=== PATIENT | female | born 2000 | race Caucasian/White ===

== ENCOUNTER 2022-01-02 01:52 | Emergency (ER) | payer SELFPAY ==
[~2022-01-02] VITALS: Ht 152 cm; Wt 58.0 kg
[~2022-01-02 01:52] MED LIST: AGM875T PO; GENT3.5O18 OS
[2022-01-02 02:00] VITALS: BP 140/97
--- NOTE | 2022-01-02 02:34 | ED Integumentary General ---
General Chief Complaint: Laceration Stated Complaint: L HAND INDEX FINGER LAC;BLEEDING Nursing Triage Note: PT REPORTS TO ED FOR LT HAND INDEX FINGER LAC. SHE WAS CUTTING OPEN A BAG OF PIZZA ROLLS WITH A KNIFE WHEN IT SLIPPED. NO BLEEDING AT THIS TIME. PT AMB. TO ROOM 04 WITHOUT DIFFICULTY. Source: patient Exam Limitations: no limitations History of Present Illness Date Seen by Provider: Jan 02, 2022 Time Seen by Provider: 02:25 Initial Comments Patient is a 21-year-old female who presents to the emergency room with a chief complaint of laceration to the index finger of her left hand. Patient was opening a bag of pizza rolls when the knife slipped and she sliced her index finger. Complains of pain and bleeding. No other complaints of recent illness or injury. All other review of systems reviewed and negative except as stated. Timing/Duration: just prior to arrival Severity: mild Location: hands (Left index finger) Possible Cause: other Associated Symptoms: denies symptoms Allergies and Home Medications Patient Home Medication List Home Medication List Reviewed: Yes Review of Systems Review of Systems Constitutional: see HPI Respiratory: no symptoms reported Cardiovascular: no symptoms reported Musculoskeletal: no symptoms reported Skin: other (Laceration left index finger) Past Vrlcpti-Bptham-Alheww Hx Patient Social History Tobacco Use?: No Substance use?: No Alcohol Use?: No Pt feels they are or have been: No Past Medical History Surgery/Hospitalization HX: PMH;DENIES. SURGERY;DENIES. Physical Exam Vital Signs Vital Signs - First Documented 01/02/22 02:00 Temp 36.2 Pulse 90 Resp 20 B/P (MAP) 140/97 (111) Pulse Ox 97 O2 Delivery Room Air Capillary Refill : Less Than 3 Seconds General Appearance: WD/WN, no apparent distress Cardiovascular: regular rate, rhythm Respiratory: no respiratory distress, no accessory muscle use Extremities: normal range of motion, normal inspection Neurologic/Psychiatric: alert, normal mood/affect, oriented x 3 Skin: normal color, warm/dry Skin Problem Location: other (Superficial laceration approximately 1.2 cm across the tip of the distal left index finger. No active bleeding. Minimal visualization of subcutaneous fat.) Procedures/Interventions Wound Location: Upper Extremities Other Wound Location Tip of left index finger Wound Length (cm): 1.2 Wound's Depth, Shape: superficial Wound Explored: clean Irrigated w/ Saline (ccs): 20 Other Closure Supply: Wound Adhesive Progress Wound cleansed with saline. Skin affix used to approximate wound edges. Dressing applied Progress/Results/Core Measures Results/Orders Vital Signs/I&O 01/02/22 02:00 Temp 36.2 Pulse 90 Resp 20 B/P (MAP) 140/97 (111) Pulse Ox 97 O2 Delivery Room Air Blood Pressure Mean: 111 Departure Impression Primary Impression: Laceration of left index finger Qualified Codes: S61.211A - Laceration without foreign body of left index finger without damage to nail, initial encounter Disposition: HOME, SELF-CARE Condition: Stable Departure-Patient Inst. Decision time for Depature: 02:33 Referrals: NO,LOCAL PHYSICIAN (PCP) Primary Care Physician Patient Instructions: Laceration Repair With Glue ED Add. Discharge Instructions: Do not put any triple antibiotic ointment over the glue as it will take it off. You can wash the finger normally with soap and water. The glue will peel off over time. Keep a dressing on the finger for the next couple of days. Return to the emergency room for any signs or symptoms of infection, fever or other emergent concerns. Your tetanus shot was updated today. KARINE CARRASCO MD Jan 02, 2022 02:34
[2022-01-02] MEDS ORDERED: TETANUS,DIPTH,PERTUSS P/F (BOOSTRIX) 0.5 ML VIAL IM ONE (02:45)
== END 2022-01-02 02:41 | disposition home or self-care (01) ==
LOC: ER 01:56
DX: S61.211A Laceration without foreign body of left index finger without damage to nail, initial encounter (principal); Z23 Encounter for immunization; W26.0XXA Contact with knife, initial encounter
CPT/HCPCS: 90715; 99284